=== PATIENT | male | born 1965 | race Caucasian/White ===

== ENCOUNTER → 2022-09-25 | Day surgery (SDC) | payer BC ==
[~2022-09-25] MED LIST: LACTATED RINGERS 1,000 ML IV ONE; LIDOCAINE 2% INJ 20 MG/ML (2 ML VIAL) ONE; PROPOFOL 10 MG/ML 20 ML VIAL IV ONE
[2022-09-25 08:58] VITALS: TEMP 97.2
--- NOTE | 2022-09-25 09:27 | P.GSHP ---
History of Present Illness H&P Date: 09/25/22 Chief Complaint: Screening colonoscopy 56-year-old male who presents today for screening colonoscopy. Patient denies a significant GI complaints. Past Medical History Past Medical History: Hyperlipidemia, Hypertension Additional Past Medical History / Comment(s): Routine colonoscopy History of Any Multi-Drug Resistant Organisms: None Reported Additional Past Surgical History / Comment(s): IOL R eye, colonoscopy Past Anesthesia/Blood Transfusion Reactions: No Reported Reaction, Motion Sickness Additional Past Anesthesia/Blood Transfusion Reaction / Comment(s): Pt has never received blood. Smoking Status: Never smoker - Past Family History Father Family Medical History: Cancer Additional Family Medical History / Comment(s): Colon and prostate cancer. Mother Family Medical History: Cancer Additional Family Medical History / Comment(s): Breast cancer. Medications and Allergies Home Medications Medication Instructions Recorded Confirmed Type Atorvastatin [Lipitor] 5 mg PO QAM 09/19/22 09/25/22 History Benazepril HCl 40 mg PO QAM 09/19/22 09/19/22 History Cyanocobalamin (Vitamin B-12) 2,000 mcg PO QAM 09/19/22 09/19/22 History [Vitamin B-12] Multivitamins, Thera [Multivitamin 1 tab PO QAM 09/19/22 09/19/22 History (formulary)] Hindman-3/Dha/Epa/Fish Oil [Fish Oil 1 cap PO QAM 09/19/22 09/19/22 History 1,000 mg Softgel] amLODIPine [Norvasc] 5 mg PO QAM 09/19/22 09/19/22 History Allergies Allergy/AdvReac Type Severity Reaction Status Date / Time wasp Allergy Swelling Uncoded 09/25/22 08:50 Surgical - Exam Vital Signs Temp Pulse Resp BP Pulse Ox 97.2 F L 77 18 132/82 98 09/25/22 08:56 09/25/22 08:56 09/25/22 08:56 09/25/22 08:56 09/25/22 08:56 - General well developed, well nourished, no distress - Eyes PERRL - ENT normal pinna - Neck no masses - Respiratory normal expansion - Cardiovascular Rhythm: regular - Abdomen Abdomen: soft, non tender Assessment and Plan Assessment: We'll perform screening colonoscopy
--- NOTE | 2022-09-25 09:39 | P.OP ---
Date of Procedure: 09/25/22 Preoperative Diagnosis: Screening colonoscopy Postoperative Diagnosis: Diverticulosis Procedure(s) Performed: Colonoscopy Anesthesia: MAC Surgeon: Juno Roblero Pathology: none sent Condition: stable Disposition: PACU Description of Procedure: The patient's placed on the endoscopy table in the lateral position. He received IV sedation. Digital rectal exam performed. This revealed no abnormalities. The flexible colonoscope was then placed patient anus and passed throughout the entire colon. The ileocecal valve was visualized. The cecum, ascending and transverse colon appeared normal. The descending and sigmoid colon had moderate diverticular changes. The scope was then brought back the re ctum and this appeared normal. Scope withdrawn for patient.
[2022-09-25 09:45] VITALS: RESP 12
[2022-09-25 10:01] VITALS: BP 136/91; PULSE 74
== END | disposition home or self-care (01) ==
LOC: ORWHC2ENDO 08:35
PROVIDERS: ATTEND Surgery
DX: Z12.11 Encounter for screening for malignant neoplasm of colon (principal); K57.30 Diverticulosis of large intestine without perforation or abscess without bleeding; E78.5 Hyperlipidemia, unspecified; I10 Essential (primary) hypertension; Z80.0 Family history of malignant neoplasm of digestive organs; Z79.899 Other long term (current) drug therapy
CPT/HCPCS: 45378; J2704; J2001